=== PATIENT | female | born 1975 | race Caucasian/White ===

== ENCOUNTER → 2017-06-09 16:16 | Outpatient (CLI) | payer OTHER ==
[2015-02-17 06:48] VITALS: BMI 28.0
[~2017-06-09 16:16] MED LIST: ADIPEX-P37.5 M1 PO; CALCIUM 600 +1 EAC3 PO; FIBER-TABS625 MG PO; GALZIN50 MG PO; HYDROCODONE-APA1 TAB PO; IBUPROFEN600 MG PO; PERCOCET 10/3251 TA1 PO; PERCOCET 5-3251 TAB PO; ROXICODONE15 MG PO; SYMBICORT 16010.2 GM INH; VENTOLIN HFA18 GM INH; VITAMIN B-12500 MC1 PO; VITAMIN D250000 UNIT PO; XANAX0.25 MG PO; XANAX1 MG PO; ZANTAC150 MG PO; ZYRTEC10 MG PO
== END | disposition home or self-care (01) ==
LOC: D.MAMMO 10:00
DX: Z12.31 Encounter for screening mammogram for malignant neoplasm of breast (principal)